=== PATIENT | female | born 1980 | race Caucasian/White ===

== ENCOUNTER → 2016-11-02 | Outpatient (CLI) | payer BC, OTHER ==
[~2016-11-02] MED LIST: ATV1 PO; ATV1HP PO; CHOL100027 PO; FIBER PO; IBUP-1277 PO; KFL/250 PO; LANS30CA63 PO; LEVO100T7 PO; LEVO50TA6 PO; MTR600X PO; MULT-506 PO; OXYC-57 PO
[2016-11-02 18:06] LABS: URINE APPEARANCE CLOUDY (CLEAR); URINE BILIRUBIN NEG (NEG); URINE COLOR YELLOW; URINE EPITHELIAL CELL AUTO >30 /lpf (0-5); URINE NITRITE NEG (NEG); URINE SPECIFIC GRAVITY 1.031 (1.000-1.030); UROBILINOGEN NEG (NEG)
[2016-11-02 18:21] LABS: MANUAL MICROSCOPIC REQUIRED? NO; REVIEW REQ? NO
== END | disposition home or self-care (01) ==
LOC: C.LABSPEC 12:51
PROVIDERS: ATTEND Obstetrics & Gynecology
DX: O09.529 Supervision of elderly multigravida, unspecified trimester (principal)

== ENCOUNTER → 2016-11-09 | Outpatient (CLI) | payer BC ==
[2016-11-12 14:54] LABS: CHLAMYDIA TRACH RNA*** NOT DETECTED (NOT DETECTED); GC (NEIS GONORRHOEAE)RNA** NOT DETECTED (NOT DETECTED)
== END | disposition home or self-care (01) ==
LOC: C.LABSPEC 15:52
PROVIDERS: ATTEND Obstetrics & Gynecology
DX: O09.521 Supervision of elderly multigravida, first trimester (principal)

== ENCOUNTER → 2016-11-09 | Outpatient (CLI) | payer BC ==
[2016-11-09 14:41] LABS: BASO % 0.3 %; BASO ABS # 0.03 K/uL (0-0.2); COMPLETE YES; EOS % 0.9 %; HEMATOCRIT 39.9 % (37-47); IG% 0.3 %; LYMPH % 16.2 %; LYMPH ABS # 1.89 K/uL (1.2-3.4); MEAN CELL VOLUME 89.3 fL (80-100); MEAN CORPUSCULAR HEMOGLOBIN 31.8 pg (25-34); MEAN CORPUSCULAR HGB CONC 35.6 g/dl (32-36); MEAN PLATELET VOLUME 10.9 fL (7.4-10.4); MONO % 5.7 %; NEUT % 76.6 %; PLATELET COUNT 268 K/uL (130-400); RED BLOOD COUNT 4.47 M/uL (4.2-5.4); WHITE BLOOD COUNT 11.68 K/uL (4.8-10.8)
[2016-11-09 15:04] LABS: THYROID STIMULATING HORMONE 2.94 uIu/ml (0.300-4.500)
[2016-11-09 15:09] LABS: THYROXINE (T4) 9.7 mcg/dl (4.5-10.9)
== END | disposition home or self-care (01) ==
LOC: C.LAB1850 12:40
PROVIDERS: ATTEND Obstetrics & Gynecology
DX: O99.280 Endocrine, nutritional and metabolic diseases complicating pregnancy, unspecified trimester (principal); O09.521 Supervision of elderly multigravida, first trimester

== ENCOUNTER → 2016-11-10 | Outpatient (CLI) | payer BC | END | disposition home or self-care (01) | LOC: C.PATHSPEC 16:59 | PROVIDERS: ATTEND Nurse Practitioner Family | DX: R31.29 Other microscopic hematuria (principal) ==

== ENCOUNTER → 2016-11-11 | Outpatient (CLI) | payer BC ==
--- NOTE | 2016-11-11 16:20 | DIAGNOSTIC IMAGING REPORT ---
ULTRASOUND KIDNEYS AND BLADDER CLINICAL HISTORY: Microscopic hematuria. COMPARISON STUDY: Abdominal CT dated 08/29/2007. TECHNIQUE: Real-time, grayscale, and color flow sonography of the kidneys and bladder is performed. Images are reviewed in the transverse and longitudinal planes. FINDINGS: Kidneys: The kidneys are normal in size and echotexture. The right kidney measures 10.5 cm in length and the left kidney measures 11.6 cm in length. There is no hydronephrosis. No shadowing renal calculi are identified. There is no sonographic evidence of contour deforming renal mass lesion. No perinephric fluid is identified. Bladder: The bladder is normal in appearance. Bilateral ureteral jets were seen. IMPRESSION: Unremarkable sonographic assessment of the kidneys and bladder. Electronically signed by: Fredo Carmen M.D. 11/11/2016 4:18 PM Dictated Date/Time: 11/11/2016 4:17 PM
== END | disposition home or self-care (01) ==
LOC: C.ULTR 15:45
PROVIDERS: ATTEND Nurse Practitioner Family
DX: R31.29 Other microscopic hematuria (principal)

== ENCOUNTER → 2016-12-07 | Outpatient (CLI) | payer BC ==
[2016-12-07 17:08] LABS: THYROID STIMULATING HORMONE 1.56 uIu/ml (0.300-4.500)
== END | disposition home or self-care (01) ==
LOC: C.LAB1850 15:59
PROVIDERS: ATTEND Internal Medicine
DX: O99.280 Endocrine, nutritional and metabolic diseases complicating pregnancy, unspecified trimester (principal)

== ENCOUNTER → 2017-01-04 | Outpatient (CLI) | payer BC ==
[2017-01-04 18:10] LABS: THYROID STIMULATING HORMONE 2.18 uIu/ml (0.300-4.500)
[2017-01-04 18:17] LABS: GTGD 50 Grams
[2017-01-06 15:27] LABS: AFP CONCENTRATION 25.6 NG/ML; AFP MULTIPLE OF MEDIAN 0.83; AFPTS GESTATIONAL AGE 16.4 WEEKS; AFPTS INSULIN DEP DIABETIC? NO; AFPTS MATERNAL WT 178 LBS; ALPHA-FETOPROTEIN RACE CAUCASIAN=W; HISTORY OF NTD NO; REPEAT SAMPLE? NO
== END | disposition home or self-care (01) ==
LOC: C.LAB1850 16:00
PROVIDERS: ATTEND Obstetrics & Gynecology
DX: E03.9 Hypothyroidism, unspecified (principal); O09.522 Supervision of elderly multigravida, second trimester

== ENCOUNTER → 2017-02-01 | Outpatient (CLI) | payer BC ==
[2017-02-01 18:30] LABS: THYROID STIMULATING HORMONE 3.2 uIu/ml (0.300-4.500)
== END | disposition home or self-care (01) ==
LOC: C.LAB1850 15:11
PROVIDERS: ATTEND Internal Medicine
DX: O99.280 Endocrine, nutritional and metabolic diseases complicating pregnancy, unspecified trimester (principal); Z3A.00 Weeks of gestation of pregnancy not specified; E03.9 Hypothyroidism, unspecified

== ENCOUNTER → 2017-03-01 | Outpatient (CLI) | payer BC ==
[2017-03-01 17:52] LABS: THYROID STIMULATING HORMONE 2.17 uIu/ml (0.300-4.500)
== END | disposition home or self-care (01) ==
LOC: C.LAB1850 15:25
PROVIDERS: ATTEND Internal Medicine
DX: O99.280 Endocrine, nutritional and metabolic diseases complicating pregnancy, unspecified trimester (principal)

== ENCOUNTER → 2017-03-09 | Outpatient (CLI) | payer BC ==
[2017-03-11 14:57] LABS: LEAD BLOOD LESS THAN 1 MCG/DL (0-9)
== END | disposition home or self-care (01) ==
LOC: C.LAB1850 11:37
PROVIDERS: ATTEND Internal Medicine
DX: Z77.011 Contact with and (suspected) exposure to lead (principal)

== ENCOUNTER → 2017-03-29 | Outpatient (CLI) | payer BC ==
[2017-03-29 17:29] LABS: HEMATOCRIT 36.9 % (37-47)
[2017-03-29 17:49] LABS: THYROID STIMULATING HORMONE 1.66 uIu/ml (0.300-4.500)
[2017-03-29 18:43] LABS: GTGD 50 Grams
== END | disposition home or self-care (01) ==
LOC: C.LAB1850 14:44
PROVIDERS: ATTEND Obstetrics & Gynecology
DX: O99.280 Endocrine, nutritional and metabolic diseases complicating pregnancy, unspecified trimester (principal); O09.523 Supervision of elderly multigravida, third trimester

== ENCOUNTER → 2017-03-29 | Outpatient (CLI) | payer BC ==
[2017-03-29 16:34] LABS: URINE APPEARANCE CLOUDY (CLEAR); URINE BILIRUBIN NEG (NEG); URINE COLOR YELLOW; URINE EPITHELIAL CELL AUTO >30 /lpf (0-5); URINE NITRITE NEG (NEG); URINE SPECIFIC GRAVITY 1.027 (1.000-1.030); UROBILINOGEN NEG (NEG)
[2017-03-29 16:36] LABS: MANUAL MICROSCOPIC REQUIRED? NO; REVIEW REQ? YES
== END | disposition home or self-care (01) ==
LOC: C.LABSPEC 15:49
PROVIDERS: ATTEND Obstetrics & Gynecology
DX: O09.523 Supervision of elderly multigravida, third trimester (principal)

== ENCOUNTER → 2017-04-06 | Outpatient (CLI) | payer BC | END | disposition home or self-care (01) | LOC: C.LAB1850 07:46 | PROVIDERS: ATTEND Obstetrics & Gynecology | DX: O28.9 Unspecified abnormal findings on antenatal screening of mother (principal) ==

== ENCOUNTER 2017-04-26 00:06 | Outpatient (CLI) | payer BC ==
[~2017-04-26] VITALS: Ht 162.6 cm; Wt 87.0 kg
[~2017-04-26 00:06] MED LIST changes: -ATV1 PO; -LEVO100T7 PO; -MTR600X PO; -OXYC-57 PO
[2017-04-26 00:45] VITALS: Ht 162.6 cm; Wt 87.0 kg
[2017-04-26] MEDS ORDERED: LEVO100T7 PO (01:31)
== END 2017-04-26 00:55 | disposition home or self-care (01) ==
LOC: C.OPB 00:06 → C.LD 00:07 → C.OPB 00:55
PROVIDERS: ATTEND Obstetrics & Gynecology
DX: O99.613 Diseases of the digestive system complicating pregnancy, third trimester (principal); K62.5 Hemorrhage of anus and rectum; Z3A.32 32 weeks gestation of pregnancy

== ENCOUNTER 2017-04-26 01:00 | Emergency (ER) | payer BC ==
[~2017-04-26] VITALS: Ht 165.1 cm; Wt 87.6 kg
[2017-04-26 01:03] VITALS: TEMP 36.6; Ht 165.1 cm; Wt 87.6 kg
[2017-04-26] MEDS ORDERED: ACETAMINOPHEN 500 MG TAB PO STA (01:26)
[2017-04-26] MEDS ORDERED: ONDANSETRON INJ 2 MG/ML 2 ML VIAL IV STA (01:26)
[2017-04-26] MEDS ORDERED: SODIUM CHLORIDE 0.9% 1000ML 1,000 ML IV STA (01:26)
[2017-04-26] MEDS ORDERED: LEVO100T7 PO (01:31)
[2017-04-26 02:07] LABS: BASO % 0.2 %; BASO ABS # 0.03 K/uL (0-0.2); COMPLETE YES; EOS % 0.7 %; HEMATOCRIT 38.3 % (37-47); IG% 0.4 %; LYMPH % 15.3 %; LYMPH ABS # 1.85 K/uL (1.2-3.4); MEAN CELL VOLUME 93.2 fL (80-100); MEAN CORPUSCULAR HEMOGLOBIN 32.8 pg (25-34); MEAN CORPUSCULAR HGB CONC 35.2 g/dl (32-36); MEAN PLATELET VOLUME 10.1 fL (7.4-10.4); MONO % 6.7 %; NEUT % 76.7 %; PLATELET COUNT 213 K/uL (130-400); RED BLOOD COUNT 4.11 M/uL (4.2-5.4); WHITE BLOOD COUNT 12.09 K/uL (4.8-10.8)
[2017-04-26 02:26] LABS: ALT/SGPT 27 U/L (12-78); AST/SGOT 9 U/L (15-37); BLOOD UREA NITROGEN 7 mg/dl (7-18); BUN/CREATININE RATIO 13.7 (10-20); CARBON DIOXIDE 23 mmol/L (21-32); CHLORIDE 108 mmol/L (98-107); CREATININE 0.49 mg/dl (0.60-1.20); GLUCOSE 103 mg/dl (70-99); POTASSIUM 3.9 mmol/L (3.5-5.1); SODIUM 141 mmol/L (136-145)
[2017-04-26 02:29] LABS: ALKALINE PHOSPHATASE 79 U/L (45-117)
[2017-04-26 03:02] LABS: URINE APPEARANCE CLEAR (CLEAR); URINE BILIRUBIN NEG (NEG); URINE COLOR YELLOW; URINE NITRITE NEG (NEG); URINE PH 6.5 (4.5-7.5); URINE SPECIFIC GRAVITY 1.013 (1.000-1.030); UROBILINOGEN NEG (NEG); ZZUR CULT IF INDIC CLEAN CATCH NO
[2017-04-26 03:04] LABS: MANUAL MICROSCOPIC REQUIRED? NO; REVIEW REQ? NO
--- NOTE | 2017-04-26 03:38 | EMERGENCY ROOM VISIT NOTE ---
History First contact with patient: 01:06 Chief Complaint: ABDOMINAL PAIN Stated Complaint: EXTREME ABDOMINAL PAIN AND RECTAL BLEEDING Nursing Triage Summary: C/O sudden lower abdominal pain with diarrhea that started at 1700 tonight after eating a small amount of potato salad. Reports that she has had multiple episodes of diarrhea that includes bright red blood with small darker red clots in stool. Pain to rectum during and after bm as well. Also experiencing nausea with severe pain. Denies vomitting. Denies fever. Denies taking any meds prior to arrival Patient is 32 weeks preg. Hx- hemmoroids & constipation. History of Present Illness The patient is a 36 year old female who presents to the Emergency Room with complaints of a sudden onset of diffuse, sharp, cramping abdominal pain, which began at 1700 last evening. Shortly after laurent the abdominal pain, patient states that she passed multiple movements of watery diarrhea. The first few movements were stool colored, but then she noticed bright red blood throughout her stool and in the toilet water within the last 3 movements, in the last 2 hours. Since the time of onset, patient has also felt nauseous but she denies vomiting. Has also felt chilled but denies fevers. Patient is currently 32 weeks . She was cleared by labor and delivery just prior to arriving to the ED today. She has continued to feel the baby move normally, no pelvic cramping, bleeding or abnormal discharge. Patient notes that she has experienced rectal bleeding in the past, but never to this extent. She has had 2 colonoscopies in the past which showed pockets of diverticula, no hx of diverticulitis. Patient denies having any abdominal pain, nausea, or diarrhea prior to time of onset this evening. Had a normal bowel movement earlier this morning. Review of Systems A complete 10 point review of systems was reviewed with the patient with pertinent positives and negatives as per history of present illness. All else were negative. Past Medical/Surgical History Medical Problems: (1) Intrauterine (2) Melanoma (3) Rectal bleeding (4) Vaginal delivery Surgical Problems: (1) H/O partial thyroidectomy Family History Cancer Hypertension Kidney disease Social History Smoking Status: Never Smoker Alcohol Use: occasionally Marital Status: Housing Status: lives with family Current/Historical Medications Scheduled Cholecalciferol (Vitamin D 1000 Unit), 2,000 INTER.UNIT PO AFTERNOON Fiber Laxative (Fiber Laxative), 1 CAP PO AFTERNOON Lansoprazole (Prevacid), 15 MG PO QAM Levothyroxine Sodium (Levothyroxine Sodium), 50 MCG PO DIRECTED Levothyroxine Sodium (Levothyroxine Sodium), 100 MCG PO 6XWK Multivitamin (Multivitamin), 1 TAB PO AFTERNOON Allergies Coded Allergies: No Known Allergies (Unverified , 04/26/17) Physical Exam Vital Signs Date Time Temp Pulse Resp B/P (MAP) Pulse Ox O2 Delivery O2 Flow Rate FiO2 04/26/17 03:53 75 18 121/76 98 04/26/17 02:39 65 18 123/75 99 Room Air 04/26/17 02:38 123/75 04/26/17 01:03 36.6 99 18 135/86 94 Room Air Physical Exam VITALS: Vitals are noted on the nurse's note and reviewed by myself. Vital signs stable. GENERAL: This is a 36-year-old female, in no acute distress, nondiaphoretic, well-developed well-nourished. SKIN: Capillary reflex less than 2 seconds. HEART: Regular rate and rhythm without murmurs gallops or rubs. LUNGS: Clear to auscultation bilaterally without wheezes, rales or rhonchi. No retractions or accessory muscle use. ABDOMEN: Gravid uterus. Positive bowel sounds. Soft, nontender to palpation. NEURO: Patient was alert and oriented to person place and time. Medical Decision & Procedures Laboratory Results 04/26/17 01:50 Red Blood Count 4.11, Mean Corpuscular Volume 93.2, Mean Corpuscular Hemoglobin 32.8, Mean Corpuscular Hemoglobin Concent 35.2, Mean Platelet Volume 10.1, Neutrophils (%) (Auto) 76.7, Lymphocytes (%) (Auto) 15.3, Monocytes (%) (Auto) 6.7, Eosinophils (%) (Auto) 0.7, Basophils (%) (Auto) 0.2, Neutrophils # (Auto) 9.27, Lymphocytes # (Auto) 1.85, Monocytes # (Auto) 0.81, Eosinophils # (Auto) 0.08, Basophils # (Auto) 0.03 04/26/17 01:50 Test 04/26/17 01:40 04/26/17 01:50 04/26/17 02:34 White Blood Count 12.09 K/uL (4.8-10.8) Red Blood Count 4.11 M/uL (4.2-5.4) Hemoglobin 13.5 g/dL (12.0-16.0) Hematocrit 38.3 % (37-47) Mean Corpuscular Volume 93.2 fL (80-100) Mean Corpuscular Hemoglobin 32.8 pg (25-34) Mean Corpuscular Hemoglobin Concent 35.2 g/dl (32-36) Platelet Count 213 K/uL (130-400) Mean Platelet Volume 10.1 fL (7.4-10.4) Neutrophils (%) (Auto) 76.7 % Lymphocytes (%) (Auto) 15.3 % Monocytes (%) (Auto) 6.7 % Eosinophils (%) (Auto) 0.7 % Basophils (%) (Auto) 0.2 % Neutrophils # (Auto) 9.27 K/uL (1.4-6.5) Lymphocytes # (Auto) 1.85 K/uL (1.2-3.4) Monocytes # (Auto) 0.81 K/uL (0.11-0.59) Eosinophils # (Auto) 0.08 K/uL (0-0.5) Basophils # (Auto) 0.03 K/uL (0-0.2) RDW Standard Deviation 46.0 fL (36.4-46.3) RDW Coefficient of Variation 13.5 % (11.5-14.5) Immature Granulocyte % (Auto) 0.4 % Immature Granulocyte # (Auto) 0.05 K/uL (0.00-0.02) Anion Gap 10.0 mmol/L (3-11) Est Creatinine Clear Calc Drug Dose 175.2 ml/min Estimated GFR () 146.3 Estimated GFR (Non- 126.2 BUN/Creatinine Ratio 13.7 (10-20) Calcium Level 9.0 mg/dl (8.5-10.1) Total Bilirubin 0.3 mg/dl (0.2-1) Direct Bilirubin < 0.1 mg/dl (0-0.2) Aspartate Amino Transf (AST/SGOT) 9 U/L (15-37) Alanine Aminotransferase (ALT/SGPT) 27 U/L (12-78) Alkaline Phosphatase 79 U/L (45-117) Total Protein 6.2 gm/dl (6.4-8.2) Albumin 3.0 gm/dl (3.4-5.0) Lipase 135 U/L (73-393) Urine Color YELLOW Urine Appearance CLEAR (CLEAR) Urine pH 6.5 (4.5-7.5) Urine Specific [place] 1.013 (1.000-1.030) Urine Protein NEG (NEG) Urine Glucose (UA) NEG (NEG) Urine Ketones NEG (NEG) Urine Occult Blood NEG (NEG) Urine Nitrite NEG (NEG) Urine Bilirubin NEG (NEG) Urine Urobilinogen NEG (NEG) Urine Leukocyte Esterase NEG (NEG) Date/Time Source Procedure Growth Status 04/26/17 01:40 Stool C.difficile Toxin B Gene (PCR) - Final No C. difficile toxin B gene detected Complete Laboratory results reviewed by me Medications Administered Medications (Trade) Dose Ordered Sig/Rikki Route Start Time Stop Time Status Last Admin Dose Admin Sodium Chloride 1,000 ml @ 999 mls/hr Q1H1M STAT IV 04/26/17 01:26 04/26/17 02:26 DC 04/26/17 01:46 999 MLS/HR ED Course The patient was evaluated as above. Labs were drawn and IV access was obtained. Patient was medicated with 1 L normal saline solution. Patient was reevaluated and has no significant complaints at this time. Discharge instructions were reviewed with the patient. The patient verbalized understanding of my assessment and treatment plan and was discharged home in good condition. Medical Decision Differential diagnosis includes viral gastroenteritis, foodborne illness, diverticulitis, among others. The patient is a 36-year-old female who presents today complaining of diffuse abdominal cramping and blood-tinged diarrhea. Patient was cleared by labor and delivery prior to her arrival here. Labs revealed a mild leukocytosis consistent with . No anemia or concerning electrolyte abnormalities. The patient's abdomen is nontender. I feel she likely is suffering from a viral gastroenteritis. Stool sample was obtained and sent for culture. The patient was hydrated and felt better. She will follow-up with her CUSTOMER CARE SPECIALIST as needed. Based on the patient's presentation and work up, I feel the patient is stable for outpatient treatment. The patient was educated to return to the emergency department for any worsening of their current condition or new/concerning symptoms. She will follow up with her CUSTOMER CARE SPECIALIST. Medication reconciliation: I attest that I have personally reviewed the patient 's current medication list. Blood pressure screening: Patient was found to have normal blood pressure on screening and does not require follow-up. Impression Primary Impression: Diarrhea Departure Information Dispostion Home / Self-Care Condition GOOD Referrals RV. Wall MD (PCP) Patient Instructions My [facility] Additional Instructions Rest and drink plenty of fluids. Tylenol as needed for pain. Follow-up with your CUSTOMER CARE SPECIALIST this week. Return for worsening pain, fevers, or any other new/concerning symptoms. Problem Qualifiers Primary Impression: Diarrhea Diarrhea type: presumed infectious Qualified Codes: A09 - Infectious gastroenteritis and colitis, unspecified
[2017-04-26 03:53] VITALS: BP 121/76; PULSE 75; O2SAT 98
[2017-04-27 19:28] LABS: O&P GIARDIA AG NOT DETECTED (NOT DETECTED)
== END 2017-04-26 03:53 | disposition home or self-care (01) ==
LOC: C.EDB 01:01
DX: A09 Infectious gastroenteritis and colitis, unspecified (principal); O99.613 Diseases of the digestive system complicating pregnancy, third trimester; Z3A.32 32 weeks gestation of pregnancy; Z85.820 Personal history of malignant melanoma of skin; Z80.9 Family history of malignant neoplasm, unspecified; Z82.49 Family history of ischemic heart disease and other diseases of the circulatory system; Z84.1 Family history of disorders of kidney and ureter; Z79.899 Other long term (current) drug therapy

== ENCOUNTER → 2017-04-27 | Outpatient (CLI) | payer BC ==
[~2017-04-27] MED LIST changes: +ATV1 PO; -ATV1HP PO; -IBUP-1277 PO; -KFL/250 PO; +LEVO100T7 PO; +MTR600X PO; +OXYC-57 PO
[2017-04-27 18:06] LABS: THYROID STIMULATING HORMONE 2.06 uIu/ml (0.300-4.500)
== END | disposition home or self-care (01) ==
LOC: C.LAB1850 16:07
PROVIDERS: ATTEND Internal Medicine
DX: E03.9 Hypothyroidism, unspecified (principal)

== ENCOUNTER 2017-05-05 17:21 | Outpatient (CLI) | payer BC ==
[~2017-05-05 17:21] MED LIST changes: -ATV1 PO; -MTR600X PO; -OXYC-57 PO
== END 2017-05-05 18:23 | disposition home or self-care (01) ==
LOC: C.OPB 17:21 → C.LD 17:21 → C.OPB 18:23
PROVIDERS: ATTEND Obstetrics & Gynecology
DX: O26.893 Other specified pregnancy related conditions, third trimester (principal); Z3A.33 33 weeks gestation of pregnancy

== ENCOUNTER → 2017-05-11 | Outpatient (CLI) | payer BC ==
[~2017-05-11] MED LIST changes: +ATV1 PO; +MTR600X PO; +OXYC-57 PO
[2017-05-11 18:01] LABS: URINE APPEARANCE CLEAR (CLEAR); URINE BILIRUBIN NEG (NEG); URINE COLOR DK YELLOW; URINE NITRITE NEG (NEG); URINE SPECIFIC GRAVITY 1.015 (1.000-1.030); UROBILINOGEN NEG (NEG)
[2017-05-11 18:06] LABS: MANUAL MICROSCOPIC REQUIRED? NO; REVIEW REQ? NO
== END | disposition home or self-care (01) ==
LOC: C.LABSPEC 17:35
PROVIDERS: ATTEND Obstetrics & Gynecology
DX: R39.9 Unspecified symptoms and signs involving the genitourinary system (principal)

== ENCOUNTER → 2017-05-24 | Outpatient (CLI) | payer BC | END | disposition home or self-care (01) | LOC: C.LABSPEC 17:53 | PROVIDERS: ATTEND Obstetrics & Gynecology | DX: O09.523 Supervision of elderly multigravida, third trimester (principal); Z3A.00 Weeks of gestation of pregnancy not specified ==

== ENCOUNTER → 2017-05-24 | Outpatient (CLI) | payer BC ==
[2017-05-24 18:20] LABS: THYROID STIMULATING HORMONE 1.98 uIu/ml (0.300-4.500)
== END | disposition home or self-care (01) ==
LOC: C.LAB1850 17:07
PROVIDERS: ATTEND Internal Medicine
DX: E03.9 Hypothyroidism, unspecified (principal)

== ENCOUNTER 2017-06-01 12:32 | Inpatient (IN) | payer BC ==
[~2017-06-01] VITALS: Ht 162.6 cm; Wt 90.0 kg
[~2017-06-01 12:32] MED LIST changes: -ATV1 PO; +CEFAZOLIN IV 2,000 MG in DEXTROSE 5% 50ML 50 ML IV SCH; -MTR600X PO; -OXYC-57 PO
[2017-06-01] MEDS ORDERED: LACTATED RINGER'S 1000ML 1,000 ML IV SCH ×2 (13:39→15:59)
[2017-06-01] MEDS ORDERED: MoRPHine SULFATE PF 1 MG/ML 10 ML AMP/VIAL ONE (13:56)
[2017-06-01] MEDS ORDERED: FENTANYL CITRATE INJ 50 MCG/1 ML 2 ML VIAL ONE (13:56)
--- NOTE | 2017-06-01 14:04 | History & Physical Bridge Note ---
H&P Re-Evaluation Bridge Note: I have examined the patient, reviewed the History & Physical and in the interval since the performance of the History & Physical I have noted the following changes of clinical significance: H&P dictated. No changes noted
[2017-06-01] MEDS ORDERED: EpHEDrine SULFATE INJ 50 MG/ML AMP ONE (14:06)
[2017-06-01] MEDS ORDERED: SODIUM CHLORIDE 0.9% INJ 10 ML VIAL ONE (14:08)
[2017-06-01] MEDS ORDERED: OXYTOCIN INJ 10 UNITS/ML VIAL ONE ×2 (14:10)
[2017-06-01] MEDS ORDERED: CITRIC ACID/SODIUM CITRATE 15 ML UDC PO ONE (14:15)
[2017-06-01 14:22] LABS: BASO % 0.3 %; BASO ABS # 0.03 K/uL (0-0.2); COMPLETE YES; EOS % 0.6 %; HEMATOCRIT 41.4 % (37-47); IG% 0.6 %; LYMPH % 19.3 %; LYMPH ABS # 2.23 K/uL (1.2-3.4); MEAN CELL VOLUME 93.2 fL (80-100); MEAN CORPUSCULAR HEMOGLOBIN 31.3 pg (25-34); MEAN CORPUSCULAR HGB CONC 33.6 g/dl (32-36); MEAN PLATELET VOLUME 10.4 fL (7.4-10.4); MONO % 6.7 %; NEUT % 72.5 %; PLATELET COUNT 226 K/uL (130-400); RED BLOOD COUNT 4.44 M/uL (4.2-5.4); WHITE BLOOD COUNT 11.55 K/uL (4.8-10.8)
[2017-06-01 14:28] VITALS: Ht 162.6 cm; Wt 90.0 kg
[2017-06-01] MEDS ORDERED: EpHEDrine SULFATE INJ 50 MG/ML AMP IV PRN ×2 (14:30→16:15)
[2017-06-01] MEDS ORDERED: ATROPINE SULFATE 0.1 MG/ML 5ML SYR IV PRN (14:30)
[2017-06-01] MEDS ORDERED: ACETAMINOPHEN 1000 MG/100 ML IV IV ONE ×2 (14:30→17:42)
--- NOTE | 2017-06-01 14:30 | HISTORY & PHYSICAL EXAMINATION ---
DATE OF ADMISSION: 06/01/2017 CHIEF COMPLAINT: Sent from office for heart tracing deceleration on routine monitoring. HISTORY OF PRESENT ILLNESS: The patient is a 36-year-old G2, P1-0-0-1 at 37 weeks 4 days, who presented to labor and delivery as directed from the office after nonstress test shows 1 contraction and accompanying heart deceleration to the 100s. She is feeling well. No complaints. Positive movement. No vaginal bleeding or gushing of fluid. No regular contractions. is complicated by advanced maternal age, anxiety disorder, hypothyroidism, and strep throat exposure. PAST MEDICAL HISTORY: Depression and anxiety, hypothyroidism after thyroid surgery related to a nodule in 2013 and skin cancer in 2013. PAST SURGICAL HISTORY: Lyle teeth, thyroid surgery and surgical treatment of skin cancer. SOCIAL HISTORY: Denies tobacco, alcohol and drug use. REVIEW OF SYSTEMS: Negative except as above. All reviewed. FAMILY HISTORY: Noncontributory. PHYSICAL EXAMINATION: VITAL SIGNS: Stable. Afebrile. GENERAL: Awake, alert and oriented x3, no acute distress. CARDIOVASCULAR: Regular rate and rhythm. S1 and S2. No murmurs, gallops or rubs. LUNGS: Clear to auscultation bilaterally. ABDOMEN: Soft and nontender to palpation. Gravid. No signs or symptoms of chorioamnionitis or abruption. EXTREMITIES: No edema. No calf tenderness. HEART TRACING: After 1 hour tracing, the patient had a category 1 tracing, except for a deceleration that occurred following a contraction, dropping to the 100s lasting approximately 2 minutes. LABORATORY DATA: Blood type B positive. Rubella immune. VDRL, HIV, hep B, gonorrhea and chlamydia all negative. Glucola of 142 with a subsequent normal 2 -hour screen. Group B strep negative. ULTRASOUND: Limited bedside ultrasound shows cephalic presentation of . Positive cardiac activity. Adequate-appearing amniotic fluid. On ultrasound with color view, there was a visible umbilical cord in funic presentation between head and pelvic outlet. ASSESSMENT AND PLAN: 1. A 36-year-old G2, P1-0-0-1 at 37 weeks 4 days. 2. Late decelerations in the heart rate. 3. Funic presentation of the umbilical cord. PLAN: I discussed with the patient the positive contraction stress test necessitating delivery with heart decelerations with each contraction that she has had. After performing the ultrasound with the notation of umbilical cord between the head and the cervix, I discussed with the patient that attempts at vaginal delivery would put her in the danger of umbilical cord prolapse and therefore, I recommend section. She is agreeable to this. Informed consent was discussed. Risks, benefits, and alternatives were reviewed. She signed an informed consent. We discussed the general risks of surgery including bleeding, scarring, infection and also specific risks of including damage to baby, uterus, fallopian tubes, ovaries, bowel and bladder, risks of postoperative blood clots and pneumonia. All questions were answered and we will plan to administer 2 grams of Ancef preoperatively and Bicitra and proceed with primary low transverse . JIMMIE
[2017-06-01] MEDS ORDERED: ESMOLOL HCL 10 MG/ML 10 ML VIAL ONE (14:47)
[2017-06-01] MEDS ORDERED: HYDROCORTISONE ACETATE 25 MG SUPP PR PRN (16:00)
[2017-06-01] MEDS ORDERED: BENZOCAINE 20% AER SPR 82.5 GM CAN EXT PRN (16:00)
[2017-06-01] MEDS ORDERED: SUPERCREAM 0.870 % 15GM JAR EXT PRN (16:00)
[2017-06-01] MEDS ORDERED: LANOLIN OINT EXT PRN ×2 (16:00)
[2017-06-01] MEDS ORDERED: MAGNESIUM HYDROXIDE SUSP 30 ML UDC PO PRN (16:00)
[2017-06-01] MEDS ORDERED: PROMETHAZINE HCL INJ 25 MG in SODIUM CHLORIDE 0.9% 50ML 50 ML IV PRN (16:00)
[2017-06-01] MEDS ORDERED: SODIUM CHLORIDE 0.9% 1000ML 1,000 ML IV PRN (16:01)
[2017-06-01] MEDS ORDERED: NALOXONE HCL INJ 0.08 MG in SYRINGE 1.8 ML IV PRN (16:01)
[2017-06-01] MEDS ORDERED: NALOXONE HCL INJ 1 MG in SODIUM CHLORIDE 0.9% 1000ML 1,000 ML IV PRN (16:01)
[2017-06-01] MEDS ORDERED: LACTATED RINGER'S 1000ML 500 ML IV PRN (16:01)
[2017-06-01] MEDS ORDERED: NALBUPHINE HCL INJ 10 MG/ML AMP IV PRN (16:15)
[2017-06-01] MEDS ORDERED: ONDANSETRON INJ 2 MG/ML 2 ML VIAL IV PRN (16:15)
[2017-06-01] MEDS ORDERED: PROMETHAZINE HCL INJ 12.5 MG in SODIUM CHLORIDE 0.9% 50ML 50 ML IV PRN (16:15)
[2017-06-01] MEDS ORDERED: NALOXONE HCL 0.4 MG/1 ML VIAL/CARP IV PRN (16:15)
[2017-06-01] MEDS ORDERED: NO NARCOTICS OR SEDATIVES SCH (16:15)
[2017-06-01] MEDS ORDERED: DiphenhydrAMINE HCL 50 MG/ML VIAL IV PRN (16:15)
[2017-06-01] MEDS ORDERED: MoRPHine SULFATE PF 1 MG/ML 10 ML AMP/VIAL EPI PRN (16:15)
--- NOTE | 2017-06-01 16:31 | OPERATIVE REPORT ---
DATE OF OPERATION: 06/01/2017 PREOPERATIVE DIAGNOSES: 1. Term intrauterine at 37 weeks 4 days. 2. heart decelerations. 3. Cord presentation, funic presentation of umbilical cord. 4. heart tones in 80s prior to start of section. POSTOPERATIVE DIAGNOSES: Same. PROCEDURE: Primary low transverse section. SURGEON: Nataliia Heller DO GRE INSTRUCTOR: Abbey Meza MS3. ESTIMATED BLOOD LOSS: 800 mL. FINDINGS: Viable male , Apgars 8 and 9 and weight 6 pounds 1 ounce. Normal appearing uterus, tubes, and ovaries. Incidental finding of a loop of omentum. SPECIMENS: Placenta, cord blood, and cord gases. DRAINS: [place], clear yellow. ANESTHESIA: Spinal. COMPLICATIONS: None. DISPOSITION: Stable and good to labor and delivery. INDICATIONS FOR PROCEDURE: The patient is a 36-year-old G2, P1-0-0-1 at 37 weeks 4 days, who was sent from the office to labor and delivery after routine nonstress test for advanced maternal age revealed 1 contraction and a prolonged deceleration to the 100s of heart tones. She was then brought to labor and delivery, where after 1 hour of heart tracing, the patient had another contraction with another heart deceleration to the 100s lasting approximately 2 minutes. Ultrasound was performed at bedside to determine amniotic fluid level. While amniotic fluid level appeared adequate, there was visible umbilical cord in funic presentation between the head and the cervical os. Thus, the decision was made to proceed with section. Informed consent was obtained and the patient was agreeable to the plan. After the patient was taken to the operating room and spinal anesthesia was performed, the patient was reassessed for heart tones and these were very difficult to obtain when previously the heart tones were audible. We presumed based off of the auscultation that the heart tones were in the 80s at this time and therefore, a stat section was performed. DESCRIPTION OF PROCEDURE: In the operating room, the spinal anesthesia was performed. The patient was then prepared and draped in sterile fashion using a Betadine splash as her skin prep. She had received 2 grams of Ancef preoperatively. A timeout was confirmed. The Pfannenstiel skin incision was made with a scalpel and carried through to the underlying layer of the fascia. The fascia was nicked at midline and then extended bilaterally in blunt dissection. The superior aspect of the fascial incision was grasped with Amarjit clamps x2, elevated off the underlying rectus abdominis muscles and dissected bluntly. In a similar fashion, the inferior aspect of fascial incision was dissected. The rectus abdominis muscles were and the peritoneum was entered bluntly digitally. The bladder blade was placed using [place] and [place] forceps. The bladder flap was created. The bladder blade was replaced. The low transverse uterine incision was made with a scalpel and extended bilaterally manually. The amniotic membranes were ruptured for clear fluid and the head was delivered with cephalic presentation, nuchal cord x1 was noted and reduced. The anterior followed by the posterior shoulder were delivered followed by the body. The cord was doubly clamped and cut and the baby was handed off to the waiting pediatrics team, where a spontaneous cry was heard. A cord segment was obtained. Cord blood was obtained. The placenta was delivered spontaneously intact with a 3-vessel cord. The uterus was cleared of all clots and debris. Hysterotomy incision was reapproximated using 0 Vicryl in a running locked stitch. A second layer of the same stitch was used to imbricate the incision. Multiple sutures of 2-0 Vicryl were used in raowng-eh-gloin stitches to obtain excellent hemostasis. The loop of omentum was suture-tied and transected to prevent bowel entanglement. The gutters were cleared of all clots and debris. Again, excellent hemostasis was noted. The fascial incision was reapproximated using 0 Vicryl in a running stitch. The subcutaneous tissue was reapproximated using 2-0 plain gut suture in 2 layers. The skin incision was reapproximated using 4-0 Vicryl in a running subcuticular stitch. Benzoin and Steri-Strips were applied. The patient was then taken from the operating room back to her labor and delivery room to recover in stable and good condition. I attest to the content of the Intraoperative Record and any orders documented therein. Any exceptions are noted below. JOSHUAD
[2017-06-01] MEDS: OXYTOCIN INJ 30 UNITS in LACTATED RINGER'S 1000ML 1,000 ML IV SCH (16:33)
[2017-06-01] MEDS: SIMETHICONE 80 MG CHEW PO SCH ×2 (17:00→19:34)
--- NOTE | 2017-06-01 18:28 | [facility] Post Operative Brief Note ---
Immediate Operative Summary Operative Date Jun 01, 2017. Pre-Operative Diagnosis 1. Cord presentation 2. decelerations 3. heart tones in 80s prior to start of caesarean section 4. Term at 37 weeks 4 days Post-Operative Diagnosis same Procedure(s) Performed Primary low transverse caesarean section with the of a live male child at 1452. Surgeon Dr[address] Heller Customer Service Clerk Surgeon(s) Lavonne Meza MS-3 Estimated Blood Loss 800ml Findings Viable male . Apgars 8/9. Weight 6#1. Normal appearing uterus, tubes, ovaries. Incidental finding of loop of omentum. Specimens A; Placenta-exam B: Cord blood C: cord gases Drains antonio, clear yellow Anesthesia spinal Complication(s) None Disposition L&D
--- NOTE | 2017-06-01 18:33 | Anesthesiology Progress Note ---
Anesthesia Post Op Note Date & Time Jun 01, 2017 at 17:37 Notes Mental Status: alert / awake / arousable, participated in evaluation Pt Amnestic to Procedure: Yes Nausea / Vomiting: adequately controlled Pain: adequately controlled Airway Patency, RR, SpO2: stable & adequate BP & HR: stable & adequate Hydration State: stable & adequate Neuraxial Anesthesia: was administered, sensory block is resolving Anesthetic Complications: no major complications apparent
[2017-06-01 18:35] VITALS: BP 114/71; PULSE 54; TEMP 37; O2SAT 100
[2017-06-01] MEDS: DOCUSATE SODIUM 100 MG CAP PO SCH (19:33)
[2017-06-01 19:35] VITALS: BP 116/73; PULSE 97; O2SAT 100
[2017-06-01 20:35] VITALS: BP 121/76; PULSE 83; O2SAT 100
[2017-06-01 21:35] VITALS: O2SAT 100
[2017-06-01 22:35] VITALS: O2SAT 100
[2017-06-01 23:25] VITALS: BP 114/73; PULSE 87; TEMP 37.2; O2SAT 99
[2017-06-02] VITALS (13 sets, daily range): BP systolic 111–120; BP diastolic 73–80; PULSE 84–103; TEMP 36.7–37.1; O2SAT 93–100
[2017-06-02] MEDS: OXYTOCIN INJ 30 UNITS in LACTATED RINGER'S 1000ML 1,000 ML IV SCH (01:21)
--- NOTE | 2017-06-02 06:25 | OB/GYN Progress Note ---
GREEN [employer] MAN Progress Note Date of Service Jun 02, 2017. Subjective conversation w/ patient, physical exam, chart review, lab review Ambulation: limited ambulation Voiding: antonio catheter in place Passing Gas: No Diet Tolerance: Clear Liquids Lochia: Moderate Feeding Type: Bottle Feeding Pain: 3/10 pain Review of Systems Constitutional: No fever Respiratory: No shortness of breath Cardiac: No chest pain Abdomen: No nausea, No vomiting Female : No dysuria Objective Vital Signs Date Time Temp Pulse Resp B/P (MAP) Pulse Ox O2 Delivery O2 Flow Rate FiO2 06/02/17 06:10 18 96 06/02/17 05:15 18 93 06/02/17 04:12 18 95 06/02/17 03:10 16 100 06/02/17 03:10 37.0 94 16 111/73 (86) 100 Room Air 06/02/17 02:20 18 100 06/02/17 01:20 18 100 06/02/17 00:35 18 95 06/01/17 23:25 37.2 87 18 114/73 (87) 99 Room Air 06/01/17 23:25 18 99 06/01/17 23:25 99 Room Air 06/01/17 22:35 18 100 06/01/17 21:35 16 100 06/01/17 20:35 16 100 06/01/17 20:35 83 16 121/76 (91) 100 Room Air 06/01/17 19:35 18 100 06/01/17 19:35 97 18 116/73 (87) 100 Room Air 06/01/17 18:35 37.0 54 18 114/71 (85) 100 Room Air 06/01/17 18:35 100 Room Air 06/01/17 18:35 18 100 06/01/17 18:35 100 Room Air Physical Exam General Appearance: WELL-APPEARING Respiratory/Chest: lungs clear, normal breath sounds, no respiratory distress Cardiovascular: regular rate, rhythm Abdomen: normal bowel sounds, non tender, soft Fundus: Firm, Relation to Umbilicus (3 below U) Incision Description: Clean, Dry & Intact Extremities: non-tender, no pedal edema Laboratory Results Last 24 Hours Test 06/01/17 14:08 06/02/17 06:00 White Blood Count 11.55 K/uL Red Blood Count 4.44 M/uL Hemoglobin 13.9 g/dL Hematocrit 41.4 % Mean Corpuscular Volume 93.2 fL Mean Corpuscular Hemoglobin 31.3 pg Mean Corpuscular Hemoglobin Concent 33.6 g/dl Platelet Count 226 K/uL Mean Platelet Volume 10.4 fL Neutrophils (%) (Auto) 72.5 % Lymphocytes (%) (Auto) 19.3 % Monocytes (%) (Auto) 6.7 % Eosinophils (%) (Auto) 0.6 % Basophils (%) (Auto) 0.3 % Neutrophils # (Auto) 8.38 K/uL Lymphocytes # (Auto) 2.23 K/uL Monocytes # (Auto) 0.77 K/uL Eosinophils # (Auto) 0.07 K/uL Basophils # (Auto) 0.03 K/uL RDW Standard Deviation 46.3 fL RDW Coefficient of Variation 13.6 % Immature Granulocyte % (Auto) 0.6 % Immature Granulocyte # (Auto) 0.07 K/uL Medications Current Inpatient Medications Medications (Trade) Dose Ordered Sig/Rikki Route Start Time Stop Time Status Last Admin Dose Admin Lactated Ringer's 1,000 ml @ 1,000 mls/hr Q1H IV 06/01/17 13:39 07/01/17 13:38 06/01/17 14:08 1,000 MLS/HR Ephedrine Sulfate (EpHEDrine SULFATE INJ) 5 mg Q5M PRN IV 06/01/17 14:30 06/02/17 14:29 Atropine Sulfate (Atropine Sulfate 0.1MG/Ml Inj) 0.5 mg Q1M PRN IV 06/01/17 14:30 06/02/17 14:29 Oxytocin 30 units/ Lactated Ringer's 1,003 ml @ 125 mls/hr Q8H2M IV 06/01/17 16:45 07/01/17 16:44 06/02/17 01:21 125 MLS/HR Lactated Ringer's 1,000 ml @ 125 mls/hr Q8H IV 06/01/17 15:59 07/01/17 15:58 Ketorolac Tromethamine (Toradol Inj) 30 mg Q6H PRN IV. 06/02/17 09:00 06/07/17 08:59 Oxycodone/ Acetaminophen (Percocet 5-325mg Tab) 1 tab Q4H PRN PO 06/02/17 09:00 06/16/17 08:59 Oxycodone/ Acetaminophen (Percocet 5-325mg Tab) 2 tab Q4H PRN PO 06/02/17 09:00 06/16/17 08:59 Ibuprofen (Motrin Tab) 600 mg Q4H PRN PO 06/01/17 16:00 07/01/17 15:59 Promethazine HCl 25 mg/Sodium Chloride 51 ml @ 204 mls/hr Q4H PRN IV 06/01/17 16:00 07/01/17 15:59 Ondansetron HCl (Zofran Inj) 4 mg Q4H PRN IV 06/02/17 09:00 07/02/17 08:59 Bisacodyl (Dulcolax Tab) 5 mg HS ONCE PO 06/02/17 22:00 06/02/17 22:01 Bisacodyl (Dulcolax Supp) 10 mg PRN PRN [place] 06/03/17 16:00 07/03/17 15:59 Docusate Sodium (coLACE CAP) 100 mg BID PO 06/01/17 20:00 07/01/17 19:59 06/01/17 19:33 100 MG Magnesium Hydroxide (Milk Of Magnesia Susp) 30 ml HS PRN PO 06/01/17 16:00 07/01/17 15:59 Cocaine HCl (Supercream 0.870% Cr) BID PRN EXT 06/01/17 16:00 06/15/17 15:59 Lanolin (Lanolin Oint) PRN PRN EXT 06/01/17 16:00 07/01/17 15:59 Hydrocortisone Acetate (Anusol Hc Supp) 25 mg BID PRN [place] 06/01/17 16:00 07/01/17 15:59 Benzocaine (Dermoplast Aero Spr) 1 appln PRN PRN EXT 06/01/17 16:00 07/01/17 15:59 Simethicone (Mylicon Chew Tab) 80 mg QID PO 06/01/17 17:00 07/01/17 16:59 06/01/17 19:34 80 MG Diphenhydramine HCl (Benadryl Cap) 25 mg QID PRN PO 06/02/17 08:00 07/02/17 08:59 Diphenhydramine HCl (Benadryl Inj) 25 mg QID PRN IV 06/02/17 08:00 07/02/17 08:59 Naloxone HCl (Narcan Inj) 0.1 mg UD PRN IV 06/01/17 16:15 06/02/17 09:00 Diphenhydramine HCl (Benadryl Inj) 25 mg Q6H PRN IV 06/01/17 16:15 06/02/17 09:00 Nalbuphine HCl (Nubain Inj) 5 mg Q10M PRN IV 06/01/17 16:15 06/02/17 09:00 Naloxone HCl 1 mg/ Sodium Chloride 1,002.5 ml @ 50 mls/hr Q20H3M PRN IV 06/01/17 16:01 06/02/17 09:00 Ondansetron HCl (Zofran Inj) 4 mg Q6H PRN IV 06/01/17 16:15 06/02/17 09:00 Promethazine HCl 12.5 mg/Sodium Chloride 50.5 ml @ 200 mls/hr Q6H PRN IV 06/01/17 16:15 06/02/17 09:00 Meperidine HCl (Demerol Inj) 25 mg Q15M PRN IV 06/01/17 16:15 06/02/17 09:00 Miscellaneous Information (Dc Intraspinal Morphine) 1 ea TODAY@0900 N/A 06/02/17 09:00 06/02/17 09:01 Miscellaneous Information (No Narcotics Or Sedatives) 1 ea UD N/A 06/01/17 16:15 06/02/17 09:00 Naloxone HCl 0.08 mg/Syringe 2 ml @ 1 mls/min Q2M PRN IV 06/01/17 16:01 06/02/17 09:00 Lactated Ringer's 500 ml @ 999 mls/hr Q31M PRN IV 06/01/17 16:01 06/02/17 09:00 Ephedrine Sulfate (EpHEDrine SULFATE INJ) 10 mg Q5M PRN IV 06/01/17 16:15 06/02/17 09:00 Sodium Chloride 1,000 ml @ 15 mls/hr Q24H PRN IV 06/01/17 16:01 06/02/17 09:00 Levothyroxine Sodium (Synthroid Tab) 100 mcg DAILYBB PO 06/02/17 07:30 07/02/17 07:29 Assessment and Plan Post-Op Day Number: 1 Continue Routine Care: A/P: This is a 36 y/o female, , POD#1 s/p . She is clinically stable. Plan: - Vitals signs are reviewed and WNL (Tmax 37 ) - Last Hgb is 13.9 (06/01). This AM pending - Blood type B+, GBS neg, Rubella Immune - Routine post operative care - Encourage ambulation, monitor and control pain with medication as needed, continue with regular diet as tolerated and monitor lochia - Stool softeners and sitz bath recommended - Encourage breast feeding and educate about breast feeding Resident Physician Supervision Note: I was present with Dr. Gagnon during the history and exam. I discussed the case with the resident and agree with the findings and plan as documented in the note. Any exceptions or clarifications are listed here: POD#1, doing well. Ambulation and PO fluids. Documented By: Nataliia Heller Resident Involvement: Resident Care Provided Care Provided: OB Delivery
--- NOTE | 2017-06-02 06:41 | Medical Student: [facility] ---
Med Student LINGO CLEANER Progress Nt Date of Service Jun 02, 2017. Subjective conversation w/ patient Ambulation: limited ambulation Voiding: antonio catheter in place Passing Gas: Yes Diet Tolerance: Regular Diet Lochia: Small Feeding Type: Bottle Feeding Notes: This is a 36-year old, female who is post-op day 1 following a low transverse section secondary to presenting umbilical cord/ bradycardia/late decels. There were no complications during the procedure. Her blood type is B+, and she is rubella immune and GBS negative. She is ambulating and states that she does not have too much pain around her incision. She still has a Antonio catheter in, which is due to be removed at 0900 today. She has not had a bowel movement yet but has passed some gas. Her diet has been regular and her appetite is good. She intends to bottle-feed. Lochia is moderate, and she denies nausea/vomiting, headache, dizziness, chest pain, and shortness of breath. Review of Systems Constitutional: No fever, No chills, No sweats Respiratory: No cough, No shortness of breath Cardiac: No chest pain, No edema Breast: + see HPI Abdomen: + pain (Incision), No nausea, No vomiting Female : + see HPI Objective Physical Exam General Appearance: WELL-APPEARING, WD/WN Respiratory/Chest: chest non-tender, lungs clear, normal breath sounds Cardiovascular: regular rate, rhythm, no edema, no murmur Abdomen: normal bowel sounds, non tender, soft Fundus: Firm, Non-Tender, Relation to Umbilicus (3 cm) Incision Description: Clean, Dry & Intact Extremities: normal range of motion, non-tender, no pedal edema, no calf tenderness Laboratory Results Last 24 Hours Test 06/01/17 14:08 White Blood Count 11.55 K/uL Red Blood Count 4.44 M/uL Hemoglobin 13.9 g/dL Hematocrit 41.4 % Mean Corpuscular Volume 93.2 fL Mean Corpuscular Hemoglobin 31.3 pg Mean Corpuscular Hemoglobin Concent 33.6 g/dl Platelet Count 226 K/uL Mean Platelet Volume 10.4 fL Neutrophils (%) (Auto) 72.5 % Lymphocytes (%) (Auto) 19.3 % Monocytes (%) (Auto) 6.7 % Eosinophils (%) (Auto) 0.6 % Basophils (%) (Auto) 0.3 % Neutrophils # (Auto) 8.38 K/uL Lymphocytes # (Auto) 2.23 K/uL Monocytes # (Auto) 0.77 K/uL Eosinophils # (Auto) 0.07 K/uL Basophils # (Auto) 0.03 K/uL RDW Standard Deviation 46.3 fL RDW Coefficient of Variation 13.6 % Immature Granulocyte % (Auto) 0.6 % Immature Granulocyte # (Auto) 0.07 K/uL Assessment and Plan Post-Op Day Number: 1 Continue Routine Care: Assessment: This is a 36-year-old female who is post-op day 1 following a section secondary to a presenting umbilical cord/ bradycardia/late decels on NST. There were no complications with the procedure, and the patient's vitals were reviewed and are stable. Plan: Provide routine post- section care. Pre-delivery Hb 13.9, post-op labs pending. Continue to monitor for bleeding and incision site infection. Encourage ambulation and breast feeding. Control pain with Percocet and Motrin.
[2017-06-02 07:02] LABS: BASO % 0.2 %; BASO ABS # 0.02 K/uL (0-0.2); COMPLETE YES; EOS % 0.9 %; HEMATOCRIT 33.5 % (37-47); IG% 0.3 %; LYMPH % 12.5 %; LYMPH ABS # 1.39 K/uL (1.2-3.4); MEAN CELL VOLUME 92.5 fL (80-100); MEAN CORPUSCULAR HEMOGLOBIN 32.6 pg (25-34); MEAN CORPUSCULAR HGB CONC 35.2 g/dl (32-36); MEAN PLATELET VOLUME 10.2 fL (7.4-10.4); NEUT % 80.1 %; PLATELET COUNT 168 K/uL (130-400); RED BLOOD COUNT 3.62 M/uL (4.2-5.4); WHITE BLOOD COUNT 11.14 K/uL (4.8-10.8)
[2017-06-02] MEDS: LEVOTHYROXINE 100 MCG TAB PO SCH (07:34)
[2017-06-02] MEDS: DOCUSATE SODIUM 100 MG CAP PO SCH ×2 (07:34→19:32)
[2017-06-02] MEDS: MEPERIDINE HCL 25 MG/ML CARP IV PRN ×2 (07:44→08:09)
[2017-06-02] MEDS ORDERED: DiphenhydrAMINE HCL 50 MG/ML VIAL IV PRN (08:00)
--- NOTE | 2017-06-02 08:03 | Discharge Instructions ---
Discharge Instructions Date of Service Jun 02, 2017. Admission Reason for Admission: Pro Longed Monitoring Discharge Discharge Diagnosis / Problem: after delivery Discharge Goals Goal(s): Routine recovery after delivery Medications Continue Dispensed Medications: supercream, dermaplast, tucks, lansinoh Activity Recommendations Activity Limitations: per Instructions/Follow-up section . Instructions / Follow-Up Instructions / Follow-Up ACTIVITY RECOMMENDATIONS: * Gradual return to full activity over the next 2-3 weeks. * No lifting - nothing heavier than baby over the next 2-3 weeks. * Do not engage in vigorous exercise, sexual activity or sports until cleared by your physician. * Do not drive or operate any motorized equipment until cleared by your physician. * You may shower/bathe daily. MEDICATIONS: For discomfort or pain, you may use Acetaminophen (Tylenol), Ibuprofen (Advil), or Naproxen (Aleve) following the package directions. For constipation you may use Colace following the package directions. BREAST CARE: If you are not breast feeding: * Wear a supportive bra 24 hours a day for one to two weeks. * Avoid stimulating your breasts and nipples as much as possible during the first few weeks after delivery. * When taking a shower, have the warm water hit your back, not breasts. * When your breasts feel full, apply ice packs. Usually three to four times a day helps ease the discomfort. * Take a mild pain medication (Tylenol / Motrin) when you are uncomfortable. If breast feeding: * Use breast milk to lubricate nipples. Lansinoh cream may be used for sore nipples. You do not need to remove cream prior to breast feeding. If using a different brand of cream, check the label for directions regarding removal of cream prior to nursing. * Wear a supportive bra. * If having problems with breasts or breast feeding, call a healthcare management consultant or your health care provider. SPECIAL CARE INSTRUCTIONS: When you are discharged from the hospital, it is important for you to follow the instructions listed below: * During the first week at home, you should be able to care for yourself and your baby. In addition, the usual light household activities are encouraged. * Limit your activities to the way you feel. Do not try to clean the house or move furniture. Be sensible. * If you actively engage in sports and have done so up until the time of your delivery, you may resume these activities as soon as you feel able. This may take up to one month or even longer. Use good judgment. * Continue to take your vitamins for at least six weeks after the of your baby. * Your diet need not be limited unless you were on a special diet before your delivery. Breast-feeding mothers need around 2500 calories per day and at least 64-80 ounces of fluid per day (8 to 10 glasses). * You should eat foods from the four major food groups. Crash diets or fad diets are to be avoided. Eating lean meats, fresh fruits and vegetables, low-fat dairy products, high fiber foods and a regular exercise program, will help you get back to your pre- weight without putting your health at risk. * Constipation is sometimes a problem after delivery. Take a mild laxative as needed. If breast feeding, Milk of Magnesia is acceptable to use. You may use a suppository or Fleets enema. * A daily shower or tub bath is suggested. Wash incision daily with warm soapy water and pat dry. It doesn't need to be covered unless drainage is present. * A bloody vaginal discharge will usually continue until around four weeks . A small amount of bleeding may continue for as long as six weeks. Vaginal discharge changes from the bright red bleeding after delivery to pink then brownish and finally yellowish-pink before becoming white and disappearing. * Bleeding may increase with activity. Your first period may come in 4-8 weeks. If you are breast feeding, your period may be delayed even longer. * [place] (sex) can begin whenever both you and your partner feel comfortable and do not have any form of genital infection. It is recommended that you wait at least six weeks for internal and external healing to occur. If you have questions, please talk to your health care practitioner. A condom should be used to prevent infection and . * Foreplay, gentle intercourse and lubrication is very important the first several times to prevent pain. A water-based lubricant such as K-Y jelly or Astroglide may be used. * If you have RH negative blood and your baby is RH positive, you will receive RHOGAM by injection prior to discharge. The nurse will give you a card to keep with you that has the date and place that you received RHOGAM after delivery. * During your care, you had a Rubella screen done to check for the presence of rubella antibodies in your blood. If your test was negative, you will receive a Rubella vaccine prior to discharge. This vaccine may cause a fever, soreness at the injection site and flu-like symptoms. If these symptoms persist, notify your health care practitioner. is not advised for one month after a Rubella vaccine. * Verbalizes understanding of car seat law as reviewed with patient nursing. * Car Seat hand-out given and reviewed with patient by nursing. * Shaken baby information reviewed with patient by nursing. Call you doctor if: * Heavy bleeding (saturating several pads an hour) or passing clots the size of your fist. * A fever >101 degrees F (38.3 degrees C) on two occasions four hours apart and /or chills. * Unusual pain in the pelvic or vaginal areas. * Call the doctor for any increased redness, drainage or swelling around the incision and any pain unrelieved by prescribed pain medication. * "Baby Blues" lasting longer than two weeks. If you have any questions or concerns, call your health care practitioner at . FOLLOW UP VISIT: * Please call the office at to schedule a 6 week examination. It is important you keep this appointment. It is important for you to make arrangements for either yearly or twice yearly check-ups thereafter. Current Hospital Diet Patient's current hospital diet: Regular OB Diet Discharge Diet Recommended Diet: Regular Diet Procedures Procedures Performed: Primary low transverse caesarean section with the of a live male child at 1452. Pending Studies Studies pending at discharge: no Medical Emergencies . Who to Call and When: Medical Emergencies: If at any time you feel your situation is an emergency, please call [phone] immediately. . Non-Emergent Contact Non-Emergency issues call your: Local City Driver . . "Provider Documentation" section prepared by [email or web address] Gagnon. . VTE Core Measure Inpt VTE Proph given/why not?: SCD's
[2017-06-02] MEDS: SIMETHICONE 80 MG CHEW PO SCH ×4 (08:09→19:32)
[2017-06-02] MEDS ORDERED: ONDANSETRON INJ 2 MG/ML 2 ML VIAL IV PRN (09:00)
[2017-06-02] MEDS ORDERED: OXYCODONE/ACETAMINOPHEN 5-325 TAB PO PRN (09:00)
[2017-06-02] MEDS ORDERED: KETOROLAC TROMETHAMINE 30 MG/ML VIAL IV. PRN (09:00)
[2017-06-02] MEDS ORDERED: DC INTRASPINAL MORPHINE SCH (09:00)
[2017-06-02] MEDS: IBUPROFEN 600 MG TAB PO PRN ×2 (15:30→20:54)
[2017-06-02] MEDS: OXYCODONE/ACETAMINOPHEN 5-325 TAB PO PRN ×2 (15:30→20:55)
[2017-06-02] MEDS ORDERED: BISACODYL 5 MG TABEC ONE (19:30)
[2017-06-02] MEDS ORDERED: BISACODYL 5 MG TABEC PO ONE (22:00)
[2017-06-03] MEDS: IBUPROFEN 600 MG TAB PO PRN ×4 (01:23→20:30)
[2017-06-03] MEDS: LEVOTHYROXINE 100 MCG TAB PO SCH (06:12)
--- NOTE | 2017-06-03 06:24 | OB/GYN Progress Note ---
RETAIL LEADER Progress Note Date of Service Jun 03, 2017. Subjective conversation w/ patient, physical exam, chart review, lab review Ambulation: ambulating normally Voiding: no voiding problems Passing Gas: Yes Diet Tolerance: Regular Diet Lochia: Small Feeding Type: Bottle Feeding Review of Systems Constitutional: No fever Respiratory: No shortness of breath Cardiac: No chest pain Abdomen: No nausea, No vomiting Female : No dysuria Objective Vital Signs Date Time Temp Pulse Resp B/P (MAP) Pulse Ox O2 Delivery O2 Flow Rate FiO2 06/02/17 23:15 36.7 84 18 119/77 (91) 98 Room Air 06/02/17 23:15 98 Room Air 06/02/17 19:30 36.7 103 18 06/02/17 16:15 37.0 103 16 114/79 (91) 96 Room Air 06/02/17 16:15 96 Room Air 06/02/17 12:05 36.7 96 20 120/78 (92) 97 Room Air 06/02/17 09:00 16 97 06/02/17 08:00 20 95 06/02/17 08:00 95 Room Air 06/02/17 08:00 37.1 88 20 118/80 (93) Physical Exam General Appearance: WELL-APPEARING Respiratory/Chest: lungs clear, normal breath sounds, no respiratory distress Cardiovascular: regular rate, rhythm Abdomen: normal bowel sounds, non tender, soft Fundus: Firm, Relation to Umbilicus (3 below U) Extremities: non-tender, no pedal edema Laboratory Results Last 24 Hours Test 06/02/17 06:45 White Blood Count 11.14 K/uL Red Blood Count 3.62 M/uL Hemoglobin 11.8 g/dL Hematocrit 33.5 % Mean Corpuscular Volume 92.5 fL Mean Corpuscular Hemoglobin 32.6 pg Mean Corpuscular Hemoglobin Concent 35.2 g/dl Platelet Count 168 K/uL Mean Platelet Volume 10.2 fL Neutrophils (%) (Auto) 80.1 % Lymphocytes (%) (Auto) 12.5 % Monocytes (%) (Auto) 6.0 % Eosinophils (%) (Auto) 0.9 % Basophils (%) (Auto) 0.2 % Neutrophils # (Auto) 8.93 K/uL Lymphocytes # (Auto) 1.39 K/uL Monocytes # (Auto) 0.67 K/uL Eosinophils # (Auto) 0.10 K/uL Basophils # (Auto) 0.02 K/uL RDW Standard Deviation 45.9 fL RDW Coefficient of Variation 13.7 % Immature Granulocyte % (Auto) 0.3 % Immature Granulocyte # (Auto) 0.03 K/uL Medications Current Inpatient Medications Medications (Trade) Dose Ordered Sig/Rikki Route Start Time Stop Time Status Last Admin Dose Admin Lactated Ringer's 1,000 ml @ 1,000 mls/hr Q1H IV 06/01/17 13:39 07/01/17 13:38 06/01/17 14:08 1,000 MLS/HR Oxytocin 30 units/ Lactated Ringer's 1,003 ml @ 125 mls/hr Q8H2M IV 06/01/17 16:45 07/01/17 16:44 06/02/17 01:21 125 MLS/HR Lactated Ringer's 1,000 ml @ 125 mls/hr Q8H IV 06/01/17 15:59 07/01/17 15:58 Ketorolac Tromethamine (Toradol Inj) 30 mg Q6H PRN IV. 06/02/17 09:00 06/07/17 08:59 06/02/17 10:22 30 MG Oxycodone/ Acetaminophen (Percocet 5-325mg Tab) 1 tab Q4H PRN PO 06/02/17 09:00 06/16/17 08:59 06/02/17 20:55 1 TAB Oxycodone/ Acetaminophen (Percocet 5-325mg Tab) 2 tab Q4H PRN PO 06/02/17 09:00 06/16/17 08:59 Ibuprofen (Motrin Tab) 600 mg Q4H PRN PO 06/01/17 16:00 07/01/17 15:59 06/03/17 01:23 600 MG Promethazine HCl 25 mg/Sodium Chloride 51 ml @ 204 mls/hr Q4H PRN IV 06/01/17 16:00 07/01/17 15:59 Ondansetron HCl (Zofran Inj) 4 mg Q4H PRN IV 06/02/17 09:00 07/02/17 08:59 Bisacodyl (Dulcolax Supp) 10 mg PRN PRN RI 06/03/17 16:00 07/03/17 15:59 Docusate Sodium (coLACE CAP) 100 mg BID PO 06/01/17 20:00 07/01/17 19:59 06/02/17 19:32 100 MG Magnesium Hydroxide (Milk Of Magnesia Susp) 30 ml HS PRN PO 06/01/17 16:00 07/01/17 15:59 Cocaine HCl (Supercream 0.870% Cr) BID PRN EXT 06/01/17 16:00 06/15/17 15:59 06/02/17 23:44 15 GM Lanolin (Lanolin Oint) PRN PRN EXT 06/01/17 16:00 07/01/17 15:59 Hydrocortisone Acetate (Anusol Hc Supp) 25 mg BID PRN RI 06/01/17 16:00 07/01/17 15:59 Benzocaine (Dermoplast Aero Spr) 1 appln PRN PRN EXT 06/01/17 16:00 07/01/17 15:59 Simethicone (Mylicon Chew Tab) 80 mg QID PO 06/01/17 17:00 07/01/17 16:59 06/02/17 19:32 80 MG Diphenhydramine HCl (Benadryl Cap) 25 mg QID PRN PO 06/02/17 08:00 07/02/17 08:59 Diphenhydramine HCl (Benadryl Inj) 25 mg QID PRN IV 06/02/17 08:00 07/02/17 08:59 Levothyroxine Sodium (Synthroid Tab) 100 mcg DAILYBB PO 06/02/17 07:30 07/02/17 07:29 06/03/17 06:12 100 MCG Assessment and Plan Post-Op Day Number: 2 Continue Routine Care: A/P: This is a 36 y/o female, , POD#2 s/p for distress at term. She is clinically stable. Plan: - Vitals signs are reviewed and WNL (Tmax 37.1 ) - Last Hgb is 11.8 (06/02) - Blood type B+, GBS neg, Rubella Immune - Routine post operative care - Encourage ambulation, monitor and control pain with medication as needed, continue with regular diet as tolerated and monitor lochia - Stool softeners and sitz bath recommended - Encourage breast feeding and educate about breast feeding Resident Physician Supervision Note: I interviewed and examined the patient. Discussed with Dr. Gagnon and agree with findings and plan as documented in the note. Any exceptions or clarifications are listed here: Doing well. Routine care. Patient had several questions about her delivery that I was able to help her answer with the help of the medical student who was there. She has some anxiety associated with the whole ordeal. Documented By: Denae Ovalle Resident Involvement: Resident Care Provided Care Provided: OB Delivery
--- NOTE | 2017-06-03 06:48 | Medical Student: [facility] ---
Med Student VALVE MECHANIC Progress Nt Date of Service Jun 03, 2017. Subjective conversation w/ patient Ambulation: ambulating normally Voiding: no voiding problems Passing Gas: Yes Diet Tolerance: Regular Diet Lochia: Moderate Feeding Type: Bottle Feeding Notes: This is a 36-year old, female who is post-op day 2 following a low transverse section secondary to presenting umbilical cord/ bradycardia/late decels. There were no complications during the procedure. Her blood type is B+, and she is rubella immune and GBS negative. She is ambulating and states that she does not have too much pain around her incision, about 3/10 with intentional movement. She is voiding well and reports no burning with urination. She has not had a bowel movement yet but has passed some gas and feels better than yesterday. Her diet has been regular and her appetite is good. She intends to bottle-feed. Lochia is moderate, and she denies nausea/ vomiting, headache, dizziness, chest pain, and shortness of breath.Mild breast tenderness due to milk coming in. Review of Systems Constitutional: No fever, No chills Respiratory: No cough, No wheezing, No shortness of breath Cardiac: No chest pain, No edema Breast: + breast pain (Mild tenderness due to milk coming in and not breast- feeding), No change in shape, No nipple discharge Abdomen: + pain (Incision, 3/10 with intentional movement ), No nausea, No vomiting Female : + see HPI, No dysuria Objective Vital Signs Date Time Temp Pulse Resp B/P (MAP) Pulse Ox O2 Delivery O2 Flow Rate FiO2 06/02/17 12:05 36.7 96 20 120/78 (92) 97 Room Air 06/02/17 09:00 16 97 06/02/17 08:00 20 95 06/02/17 08:00 95 Room Air 06/02/17 08:00 37.1 88 20 118/80 (93) 06/02/17 06:10 18 96 06/02/17 05:15 18 93 06/02/17 04:12 18 95 06/02/17 03:10 16 100 06/02/17 03:10 37.0 94 16 111/73 (86) 100 Room Air 06/02/17 02:20 18 100 06/02/17 01:20 18 100 06/02/17 00:35 18 95 06/01/17 23:25 37.2 87 18 114/73 (87) 99 Room Air 06/01/17 23:25 18 99 06/01/17 23:25 99 Room Air 06/01/17 22:35 18 100 06/01/17 21:35 16 100 06/01/17 20:35 16 100 06/01/17 20:35 83 16 121/76 (91) 100 Room Air 06/01/17 19:35 18 100 06/01/17 19:35 97 18 116/73 (87) 100 Room Air 06/01/17 18:35 37.0 54 18 114/71 (85) 100 Room Air 06/01/17 18:35 100 Room Air 06/01/17 18:35 18 100 06/01/17 18:35 100 Room Air Physical Exam General Appearance: WELL-APPEARING, WD/WN Respiratory/Chest: chest non-tender, lungs clear, normal breath sounds Cardiovascular: regular rate, rhythm, no edema, no murmur Abdomen: normal bowel sounds, non tender, soft Fundus: Firm, Non-Tender, Relation to Umbilicus (3 cm) Incision Description: Clean, Dry & Intact Extremities: normal range of motion, non-tender, no pedal edema, no calf tenderness Laboratory Results Last 24 Hours Test 06/02/17 06:45 White Blood Count 11.14 K/uL Red Blood Count 3.62 M/uL Hemoglobin 11.8 g/dL Hematocrit 33.5 % Mean Corpuscular Volume 92.5 fL Mean Corpuscular Hemoglobin 32.6 pg Mean Corpuscular Hemoglobin Concent 35.2 g/dl Platelet Count 168 K/uL Mean Platelet Volume 10.2 fL Neutrophils (%) (Auto) 80.1 % Lymphocytes (%) (Auto) 12.5 % Monocytes (%) (Auto) 6.0 % Eosinophils (%) (Auto) 0.9 % Basophils (%) (Auto) 0.2 % Neutrophils # (Auto) 8.93 K/uL Lymphocytes # (Auto) 1.39 K/uL Monocytes # (Auto) 0.67 K/uL Eosinophils # (Auto) 0.10 K/uL Basophils # (Auto) 0.02 K/uL RDW Standard Deviation 45.9 fL RDW Coefficient of Variation 13.7 % Immature Granulocyte % (Auto) 0.3 % Immature Granulocyte # (Auto) 0.03 K/uL Assessment and Plan Post-Op Day Number: 2 Continue Routine Care: Assessment: This is a 36-year-old female who is post-op day 2 following a section secondary to a presenting umbilical cord/ bradycardia/late decels on NST. There were no complications with the procedure, and the patient's vitals were reviewed and are stable. Plan: Provide routine post- section care. Pre-op Hb 13.9, post-op Hb 11.8. Continue to monitor for bleeding and incision site infection. Encourage ambulation. Control pain with Percocet and Motrin.
[2017-06-03] MEDS: DOCUSATE SODIUM 100 MG CAP PO SCH ×2 (08:03→20:31)
[2017-06-03] MEDS: SIMETHICONE 80 MG CHEW PO SCH ×4 (08:03→20:31)
[2017-06-03 08:05] VITALS: O2SAT 0
[2017-06-03] MEDS: RANITIDINE HCL 150 MG TAB PO SCH ×2 (09:15→20:31)
[2017-06-03] MEDS: OXYCODONE/ACETAMINOPHEN 5-325 TAB PO PRN ×3 (10:40→20:31)
[2017-06-03 16:00] VITALS: PULSE 74; TEMP 36.8; O2SAT 98
[2017-06-03] MEDS ORDERED: BISACODYL 10 MG SUPP PR PRN (16:00)
[2017-06-03] MEDS ORDERED: LORAZEPAM 1 MG TAB PO PRN (16:45)
--- NOTE | 2017-06-03 17:06 | DIAGNOSTIC IMAGING REPORT ---
LEFT VENOUS DOPP LOWER EXT UNILAT CLINICAL HISTORY: 36 years-old Female presenting with left calf pain. TECHNIQUE: Real-time grayscale and color and spectral Doppler ultrasound imaging of the veins of the left lower extremity was performed. Compression and augmentation were also utilized. COMPARISON: None. FINDINGS: Left: Common femoral vein: Patent. Femoral vein: Patent. Greater saphenous vein: Patent. Popliteal vein: Patent. Calf veins: Patent. Other: None. IMPRESSION: No evidence of deep venous thrombosis. Electronically signed by: Alvaro Casper M.D. 06/03/2017 5:04 PM Dictated Date/Time: 06/03/2017 5:03 PM
[2017-06-03] MEDS ORDERED: MTR600X PO (17:26)
[2017-06-03] MEDS ORDERED: OXYC-57 PO (17:26)
[2017-06-03] MEDS ORDERED: ATV1 PO (17:26)
[2017-06-03 23:30] VITALS: BP 115/62; PULSE 69; TEMP 36.7; O2SAT 97
[2017-06-04] MEDS: IBUPROFEN 600 MG TAB PO PRN ×2 (04:51→10:07)
[2017-06-04] MEDS: OXYCODONE/ACETAMINOPHEN 5-325 TAB PO PRN ×2 (04:51→10:08)
--- NOTE | 2017-06-04 06:15 | Medical Student: [facility] ---
Med Student DIETARY MANAGER Progress Nt Date of Service Jun 04, 2017. Subjective conversation w/ patient Ambulation: ambulating normally Voiding: no voiding problems Passing Gas: Yes Diet Tolerance: Regular Diet Lochia: Small Feeding Type: Bottle Feeding Notes: This is a 36-year old, female who is post-op day 3 following a low transverse section secondary to presenting umbilical cord/ bradycardia/late decels. There were no complications during the procedure. Her blood type is B+, and she is rubella immune and GBS negative. She is ambulating and states that she does not have too much pain around her incision, about 3/10 with intentional movement. She is voiding well and reports no burning with urination. She has passed gas and had a bowel movement yesterday and feels much better. Her diet has been regular and her appetite is good. She intends to bottle-feed. Lochia is moderate, and she denies nausea/vomiting, headache, dizziness, chest pain, and shortness of breath. Mild breast tenderness due to milk coming in. Review of Systems Constitutional: No fever, No chills, No sweats Respiratory: No cough, No wheezing, No shortness of breath Cardiac: No chest pain, No edema Breast: + see HPI Abdomen: + pain (Incision), No nausea, No vomiting Female : No dysuria, No hematuria, No incontinence Objective Vital Signs Date Time Temp Pulse Resp B/P (MAP) Pulse Ox O2 Delivery O2 Flow Rate FiO2 06/03/17 23:30 36.7 69 18 115/62 (79) 97 Room Air 06/03/17 23:30 97 Room Air 06/03/17 16:00 Room Air 06/03/17 16:00 36.8 74 16 98 74 06/03/17 08:05 0 Room Air Physical Exam General Appearance: WELL-APPEARING, WD/WN, NO APPARENT DISTRESS Respiratory/Chest: chest non-tender, lungs clear, normal breath sounds Cardiovascular: regular rate, rhythm, no edema, no gallop, no murmur Abdomen: normal bowel sounds, non tender, soft Fundus: Firm, Non-Tender, Relation to Umbilicus (3 cm) Incision Description: Clean, Dry & Intact Extremities: normal range of motion, non-tender, no pedal edema, no calf tenderness Assessment and Plan Post-Op Day Number: 3 Continue Routine Care: Assessment: This is a 36-year-old female who is post-op day 3 following a section secondary to a presenting umbilical cord/ bradycardia/late decels on NST. There were no complications with the procedure, and the patient's vitals were reviewed and are stable. Plan: Provide routine post- section care. Pre-op Hb 13.9, post-op Hb 11.8. Continue to monitor for bleeding and incision site infection. Encourage ambulation. Control pain with Percocet and Motrin.
--- NOTE | 2017-06-04 06:27 | OB/GYN Progress Note ---
BUSHEL GIRL Progress Note Date of Service Jun 04, 2017. Subjective conversation w/ patient, physical exam, chart review, lab review Ambulation: ambulating normally Voiding: no voiding problems Diet Tolerance: Regular Diet Lochia: Small Feeding Type: Bottle Feeding Pain: mild pain Review of Systems Constitutional: No fever Respiratory: No shortness of breath Cardiac: No chest pain Abdomen: No nausea, No vomiting Female : No dysuria Objective Vital Signs Date Time Temp Pulse Resp B/P (MAP) Pulse Ox O2 Delivery O2 Flow Rate FiO2 06/03/17 23:30 36.7 69 18 115/62 (79) 97 Room Air 06/03/17 23:30 97 Room Air 06/03/17 16:00 Room Air 06/03/17 16:00 36.8 74 16 98 74 06/03/17 08:05 0 Room Air Physical Exam General Appearance: WELL-APPEARING Respiratory/Chest: lungs clear, normal breath sounds, no respiratory distress Cardiovascular: regular rate, rhythm Abdomen: normal bowel sounds, non tender, soft Fundus: Firm, Relation to Umbilicus (3 below U) Incision Description: Clean, Dry & Intact Extremities: non-tender, no pedal edema Assessment and Plan Post-Op Day Number: 3 Continue Routine Care: Resident Physician Supervision Note: I interviewed and examined the patient. Discussed with Dr. Gagnon and agree with findings and plan as documented in the note. Any exceptions or clarifications are listed here: Patient had doppler of left leg because of calf tenderness & it was negative. Documented By: Debra Cantu A/P: This is a 36 y/o female, , POD#2 s/p for distress at term. She is clinically stable. Plan: - Vitals signs are reviewed and WNL (Tmax 37.1 ) - Last Hgb is 11.8 (06/02) - Blood type B+, GBS neg, Rubella Immune - No signs of depression. - Routine care - Discussed resting, feeding, pain control, mastitis, control, follow up in 6 weeks and reasons to call sooner, if necessary. - Continue with pain medication as needed, and continue vitamins. - Encourage breast feeding and educate about breast feeding - Patient understands and keen for home. - Plan to discharge home Resident Involvement: Resident Care Provided Care Provided: OB Delivery
[2017-06-04] MEDS: LEVOTHYROXINE 100 MCG TAB PO SCH (07:29)
[2017-06-04] MEDS: RANITIDINE HCL 150 MG TAB PO SCH (07:29)
[2017-06-04] MEDS: SIMETHICONE 80 MG CHEW PO SCH (07:30)
[2017-06-04] MEDS: DOCUSATE SODIUM 100 MG CAP PO SCH (07:30)
[2017-06-04 07:52] VITALS: BP 106/68; PULSE 76; TEMP 36.7
--- NOTE | 2017-06-21 21:42 | Discharge Summary ---
Discharge Summary Date of Service Jun 21, 2017. Discharge Summary Admission Date: Jun 01, 2017 at 13:42 Discharge Date: Jun 04, 2017 Discharge Disposition: Home Principal Diagnosis: s/p section Immunizations: Have You Had Influenza Vaccine: Yes History of Tetanus Vaccine?: Yes History of Pneumococcal: No History of Hepatitis B Vaccine: No Consultations: anesthesia Medication Reconciliation New Medications: Ibuprofen (Ibuprofen) 600 Mg Tab 600 MG PO Q4H PRN for Pain, GUZMAN, Cramping, or Fever, #60 TAB 3 Refills Lorazepam (Lorazepam) 1 Mg Tab 1 MG PO BID PRN for Anxiety, #20 TAB 1 Refill Oxycodone/Acetaminophen 5MG/325MG (Percocet 5MG/325MG) Tab 1 TAB PO Q4H PRN for Pain - Pain Scale 1-5, #30 TAB 0 Refills PAIN Continued Medications: Cholecalciferol (Vitamin D 1000 Unit) 1,000 Unit Cap 2000 INTER.UNIT PO AFTERNOON, CAP Fiber Laxative (Fiber Laxative) Ea 1 CAP PO AFTERNOON Lansoprazole (Prevacid) 30 Mg Cap 15 MG PO QAM, CAP Levothyroxine Sodium (Levothyroxine Sodium) 50 Mcg Tab 50 MCG PO DIRECTED, #90 pt states takes 50 mg every wednesday Levothyroxine Sodium (Levothyroxine Sodium) 100 Mcg Tab 100 MCG PO 6XWK for 90 Days, TAB 3 Refills Multivitamin (Multivitamin) Tab 1 TAB PO AFTERNOON, TAB Hospital Course section performed due to decelerations, postoperative course included leg pain - doppler negative for DVT. Total Time Spent: Less than 30 minutes This includes examination of the patient, discharge planning, medication reconciliation, and communication with other providers. Discharge Instructions Please refer to the electronic Patient Visit Report (Discharge Instructions) for additional information. Follow-Up Office 2 weeks
== END 2017-06-04 10:30 | disposition home or self-care (01) | DRG 766 ==
LOC: C.OPB 12:32 → C.LD 12:33 → C.OPB 13:42 → C.LD 13:42 → C.OBG 18:37
PROVIDERS: ADMIT Obstetrics & Gynecology; ATTEND Obstetrics & Gynecology
PROC: 10D00Z1 Extraction of Products of Conception, Low, Open Approach (ICD-10-PCS; principal; 2017-06-01 14:32)
DX: O76 Abnormality in fetal heart rate and rhythm complicating labor and delivery (principal); O69.0XX0 Labor and delivery complicated by prolapse of cord, not applicable or unspecified; O09.513 Supervision of elderly primigravida, third trimester; Z37.0 Single live birth; Z3A.37 37 weeks gestation of pregnancy

== ENCOUNTER → 2017-06-10 | Outpatient (CLI) | payer BC ==
[~2017-06-10] MED LIST changes: +ATV1 PO; -CEFAZOLIN IV 2,000 MG in DEXTROSE 5% 50ML 50 ML IV SCH; +MTR600X PO; +OXYC-57 PO
[2017-06-10 17:39] LABS: URINE APPEARANCE CLEAR (CLEAR); URINE BILIRUBIN NEG (NEG); URINE COLOR YELLOW; URINE NITRITE NEG (NEG); URINE SPECIFIC GRAVITY 1.014 (1.000-1.030); UROBILINOGEN NEG (NEG)
[2017-06-10 17:41] LABS: MANUAL MICROSCOPIC REQUIRED? NO; REVIEW REQ? NO
== END | disposition home or self-care (01) ==
LOC: C.LAB1850 15:59
PROVIDERS: ATTEND Obstetrics & Gynecology
DX: R30.0 Dysuria (principal)

== ENCOUNTER → 2017-06-18 | Outpatient (CLI) | payer BC ==
[2017-06-18 12:32] LABS: THYROID STIMULATING HORMONE 0.762 uIu/ml (0.300-4.500)
== END | disposition home or self-care (01) ==
LOC: C.LAB1850 09:48
PROVIDERS: ATTEND Internal Medicine
DX: E03.9 Hypothyroidism, unspecified (principal)

== ENCOUNTER → 2017-08-06 | Outpatient (CLI) | payer BC ==
[2017-08-06 14:11] LABS: THYROID STIMULATING HORMONE 0.632 uIu/ml (0.300-4.500)
== END | disposition home or self-care (01) ==
LOC: C.LABBC 11:45
PROVIDERS: ATTEND Internal Medicine
DX: E03.9 Hypothyroidism, unspecified (principal)

== ENCOUNTER → 2017-08-26 | Outpatient (CLI) | payer BC ==
[2017-08-26 13:26] LABS: MEAN CORPUSCULAR HGB CONC 33.3 g/dl (32-36); MEAN PLATELET VOLUME 10.7 fL (7.4-10.4); PLATELET COUNT 308 K/uL (130-400)
[2017-08-26 13:51] LABS: BASO ABS # 0.06 K/uL (0-0.2); BASOPHIL % 0.9 %; COMPLETE YES; EOSINOPHIL % 2.6 %; HEMATOCRIT 43.5 % (37-47); LYMPH ABS # 0.84 K/uL (1.2-3.4); MEAN CELL VOLUME 92.8 fL (80-100); MEAN CORPUSCULAR HEMOGLOBIN 30.9 pg (25-34); NEUTROPHILS % 65.2 %; RED BLOOD COUNT 4.69 M/uL (4.2-5.4); VARIANT LYM ABS # 0.79 K/uL; VARIANT LYMPHOCYTE % 12.2 %; WHITE BLOOD COUNT 6.49 K/uL (4.8-10.8)
== END | disposition home or self-care (01) ==
LOC: C.LAB1850 12:24
PROVIDERS: ATTEND Internal Medicine
DX: N92.0 Excessive and frequent menstruation with regular cycle (principal)

== ENCOUNTER 2017-09-30 10:55 | Emergency (ER) | payer OTHER, BC ==
[~2017-09-30] VITALS: Ht 162.6 cm; Wt 84.4 kg
[2017-09-30 11:03] VITALS: PULSE 72; TEMP 36.7; O2SAT 99; Ht 162.6 cm; Wt 84.4 kg
[2017-09-30 11:45] VITALS: BP 122/83
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
== END 2017-09-30 11:56 | disposition home or self-care (01) ==
LOC: C.EDB 10:56 → C.EDD 11:56
DX: M25.512 Pain in left shoulder (principal); V43.52XA Car driver injured in collision with other type car in traffic accident, initial encounter; Z87.01 Personal history of pneumonia (recurrent); K21.9 Gastro-esophageal reflux disease without esophagitis; Z85.820 Personal history of malignant melanoma of skin; E89.0 Postprocedural hypothyroidism; Z79.899 Other long term (current) drug therapy

== ENCOUNTER → 2017-09-30 | Outpatient (CLI) | payer BC | END | disposition home or self-care (01) | LOC: C.LAB1850 09:16 | PROVIDERS: ATTEND Internal Medicine | DX: E03.9 Hypothyroidism, unspecified (principal) ==

== ENCOUNTER → 2018-01-13 | Outpatient (CLI) | payer BC ==
[~2018-01-13] MED LIST changes: -FIBER PO; -MTR600X PO; -OXYC-57 PO
== END | disposition home or self-care (01) ==
LOC: C.LAB1850 07:33
PROVIDERS: ATTEND Physician Assistant
DX: E03.9 Hypothyroidism, unspecified (principal)